=== PATIENT | male | born 1955 | race Caucasian/White ===

== ENCOUNTER → 2019-09-08 | Outpatient (CLI) | payer BC ==
--- NOTE | 2019-09-09 09:32 | EKG ---
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
== END ==
LOC: M.CRD 15:59
DX: Z01.818 Encounter for other preprocedural examination (principal); N20.0 Calculus of kidney